=== PATIENT | female | born 1940 | race Caucasian/White ===

== ENCOUNTER 2016-03-22 08:00 | Outpatient (CLI) | payer MEDICARE ==
[2016-03-22 08:23] LABS: #Basophils 0.2 thou/uL (0.0-0.2); #Eosinphils 0.3 thou/uL (0.0-0.7); #Lymphocytes 1.5 thou/uL (1.20-3.40); #Monocytes 0.5 thou/uL (0.11-0.59); #Neutrophils 4.2 thou/uL (1.40-6.50); %Basophils 2.3 % (0.0-1.0); %Eosinophils 4.5 % (0.0-10.0); %Lymphocytes 22.8 % (21.0-51.0); %Neutrophils 63.4 % (42.0-75.0); Hemoglobin 14.4 g/dL (12.0-16.0); Mean Corpuscular HGB CONC 32.5 g/dL (32.0-36.0); Mean Corpuscular Hemoglobin 29.9 pg (27.0-31.0); Platelet Count 242 thou/uL (130-400); RBC Distribution Width 12.7 % (11.5-14.5); Red Blood Cell (RBC) Count 4.81 mill/uL (4.20-5.40); White Blood Cell (WBC) Count 6.7 thou/uL (4.8-10.8)
[2016-03-22 08:32] LABS: Bilirubin Negative (Negative); Blood, Urine Negative (Negative); Clarity Clear (Clear); Glucose, Urine (Dipstick) Negative (Negative); Leukocyte Small (Negative); Nitrite Negative (Negative); Protein, Urine (Dipstick) Negative (Neg-Trace); Urobilinogen 0.2 mg/dL (0.2-1.0)
[2016-03-22 09:15] LABS: Bacteria/HPF Rare-Few HPF (None Seen); RBC/HPF 0-3 HPF (0-3); WBC/HPF 0-3 HPF (0-3)
[2016-03-22 09:44] LABS: ALT (SGPT) 15 U/L (0-55); AST (SGOT) 18 U/L (5-34); Albumin 3.9 g/dL (3.4-4.8); Alkaline Phosphatase 81 U/L (40-150); Anion Gap 15 mmol/L (10-20); BUN (Urea Nitrogen) 21 mg/dL (9.8-20.1); Bilirubin, Total 0.4 mg/dL (0.2-1.2); Calc. Creatinine Clearance 0 mL/min (70-130); Calcium 9.8 mg/dL (7.8-10.44); Carbon Dioxide 24 mmol/L (23-31); Cardiac Risk 2.9 (Less than 4.5); Chloride 105 mmol/L (98-107); Cholesterol 184 mg/dL (< 200 Desired); Estimated GFR-MDRD 83; Globulin 2.4 g/dL (2.4-3.5); Glucose 92 mg/dL (83-110); HDL Cholesterol 63 mg/dL (>60 Neg Risk); LDL Cholesterol, Calculated 112 mg/dL; Potassium 4.4 mmol/L (3.5-5.1); Protein, Total 6.3 g/dL (5.8-8.1); Sodium 140 mmol/L (136-145); Triglycerides 43 mg/dL (Less than 150)
== END 2016-03-22 08:01 | disposition home or self-care (01) ==
LOC: MADLABBHPM 08:00
PROVIDERS: ATTEND Family Medicine
DX: I10 Essential (primary) hypertension (principal)
CPT/HCPCS: 36415; 80053; 80061; 81001; 84443; 85025

== ENCOUNTER 2016-10-01 14:08 | Outpatient (CLI) | payer MEDICARE ==
[2016-10-01 14:27] LABS: #Basophils 0.1 thou/uL (0.0-0.2); #Eosinphils 0.3 thou/uL (0.0-0.7); #Lymphocytes 1.6 thou/uL (1.20-3.40); #Monocytes 0.5 thou/uL (0.11-0.59); #Neutrophils 5.1 thou/uL (1.40-6.50); %Basophils 1.6 % (0.0-1.0); %Eosinophils 3.6 % (0.0-10.0); %Lymphocytes 21.4 % (21.0-51.0); %Monocytes 6.3 % (0.0-10.0); Hemoglobin 14.8 g/dL (12.0-16.0); Mean Corpuscular HGB CONC 32.1 g/dL (32.0-36.0); Mean Corpuscular Hemoglobin 30.3 pg (27.0-31.0); Mean Corpuscular Volume 94.4 fl (81.0-99.0); Mean Platelet Volume 7.8 fL (7.4-10.4); Platelet Count 256 thou/uL (130-400); RBC Distribution Width 12.2 % (11.5-14.5); Red Blood Cell (RBC) Count 4.88 mill/uL (4.20-5.40); White Blood Cell (WBC) Count 7.6 thou/uL (4.8-10.8)
[2016-10-01 14:38] LABS: Anion Gap 13 mmol/L (10-20); BUN (Urea Nitrogen) 18 mg/dL (9.8-20.1); Calc. Creatinine Clearance 0 mL/min (70-130); Calcium 9.8 mg/dL (7.8-10.44); Carbon Dioxide 27 mmol/L (23-31); Chloride 107 mmol/L (98-107); Estimated GFR-MDRD 75; Glucose 98 mg/dL (83-110); Potassium 3.9 mmol/L (3.5-5.1); Sodium 143 mmol/L (136-145)
== END 2016-10-01 14:09 | disposition home or self-care (01) ==
LOC: MADLABBHPM 14:08
PROVIDERS: ATTEND Family Medicine
DX: E04.9 Nontoxic goiter, unspecified (principal)
CPT/HCPCS: 36415; 80048; 84443; 85025

== ENCOUNTER 2016-10-07 10:01 | Outpatient (CLI) | payer MEDICARE ==
--- NOTE | 2016-10-07 11:39 | ULT ---
THYROID ULTRASOUND: Date: 10/07/16 HISTORY: Goiter. FINDINGS: Comparison made with exam of 09/29/13. The right lobe measures 4.7 cm in length and the left lobe measures 4.6 cm in length. The isthmus me asures 5.0 mm in thickness. Multiple heterogeneous masses are seen, the largest measuring 2.1 x 1.5 x 2.8 cm in the right lobe, and 4.2 x 1.4 x 3.2 cm in the left lobe. IMPRESSION: Multinodular thyroid gland. FNA of the dominant nodule would be helpful. POS: SEMAJ
== END 2016-10-07 10:02 | disposition home or self-care (01) ==
LOC: MADULT 10:01
PROVIDERS: ATTEND Family Medicine
DX: E04.2 Nontoxic multinodular goiter (principal)
CPT/HCPCS: 76536

== ENCOUNTER 2018-08-14 09:43 | Emergency (ER) | payer MEDICARE ==
[2018-08-14] MEDS ORDERED: traMADol HCl 50 MG TAB ONE (10:14)
[2018-08-14] MEDS ORDERED: Adacel (T-DAP) 0.5 ML SYRINGE ONE (10:14)
--- NOTE | 2018-08-14 10:37 | RAD ---
LEFT HIP TWO VIEWS: HISTORY: Fall today with left hip pain. COMPARISON: None. FINDINGS: Two views of the left hip show an abnormal appearance at the junction of the femoral neck with the fe moral head, which may represent a minimally displaced fracture in this location. Mild soft tissue sw elling is seen. No degenerative change is seen in the left hip. IMPRESSION: Possible left femoral neck fracture. POS: LEONOR
--- NOTE | 2018-08-14 10:40 | RAD ---
LEFT WRIST FOUR VIEWS: HISTORY: Fall today with wrist pain. FINDINGS: There is an intraarticular distal radial fracture. The fracture has a transverse component through t he epiphyseal plate and also an intraarticular component at the level of the scapholunate joint. An avulsive injury of the ulnar styloid is seen. The fracture is somewhat impacted but not significantl y angulated. IMPRESSION: Distal radial and ulnar styloid fractures. POS: CET
[2018-08-14 12:24] LABS: #Basophils 0.1 thou/uL (0.0-0.2); #Eosinphils 0.1 thou/uL (0.0-0.7); #Lymphocytes 0.7 thou/uL (1.20-3.40); #Monocytes 0.6 thou/uL (0.11-0.59); #Neutrophils 9.3 thou/uL (1.40-6.50); %Basophils 0.7 % (0.0-1.0); %Eosinophils 0.6 % (0.0-10.0); %Lymphocytes 6.9 % (21.0-51.0); %Monocytes 5.2 % (0.0-10.0); %Neutrophils 86.6 % (42.0-75.0); Hemoglobin 13.2 g/dL (12.0-16.0); Mean Corpuscular HGB CONC 31.4 g/dL (32.0-36.0); Mean Corpuscular Hemoglobin 28.9 pg (27.0-31.0); Mean Corpuscular Volume 92.1 fL (78.0-98.0); Mean Platelet Volume 7.1 fL (7.4-10.4); Platelet Count 228 thou/uL (130-400); RBC Distribution Width 12.4 % (11.5-14.5); Red Blood Cell (RBC) Count 4.56 mill/uL (4.20-5.40); White Blood Cell (WBC) Count 10.8 thou/uL (4.8-10.8)
[2018-08-14 12:33] LABS: Anion Gap 12 mmol/L (10-20); BUN (Urea Nitrogen) 20 mg/dL (9.8-20.1); Calc. Creatinine Clearance 0 mL/min (70-130); Calcium 9.7 mg/dL (7.8-10.44); Carbon Dioxide 27 mmol/L (23-31); Chloride 108 mmol/L (98-107); Estimated GFR-MDRD 56; Glucose 104 mg/dL (83-110); Potassium 4.6 mmol/L (3.5-5.1); Sodium 142 mmol/L (136-145)
--- NOTE | 2018-08-14 13:07 | RAD ---
PORTABLE CHEST: HISTORY: Preop. FINDINGS: Heart size and mediastinum are within normal limits. Lungs are clear of any infiltrative process. IMPRESSION: No active intrathoracic disease. POS: CET
== END 2018-08-14 13:06 | disposition short-term general hospital (02) ==
LOC: MADERS 09:43
DX: S52.572A Other intraarticular fracture of lower end of left radius, initial encounter for closed fracture (principal); S52.612A Displaced fracture of left ulna styloid process, initial encounter for closed fracture; S72.002A Fracture of unspecified part of neck of left femur, initial encounter for closed fracture; Z79.82 Long term (current) use of aspirin; Z79.899 Other long term (current) drug therapy; W18.30XA Fall on same level, unspecified, initial encounter
CPT/HCPCS: 29125; 36415; 71045; 80048; 85025; 90471; 90715; 93005

== ENCOUNTER 2018-08-18 16:38 | Inpatient (IN) | payer MEDICARE ==
[2018-08-18 16:59] VITALS: BMI 27.5
[2018-08-18] MEDS ORDERED: Bisacodyl 10 MG SUPP PR PRN (17:54)
[2018-08-18] MEDS: Famotidine 20 MG TAB PO SCH (20:47)
[2018-08-18] MEDS: Ascorbic Acid 500 mg Chewable Tablet PO SCH (20:47)
[2018-08-19] MEDS: HYDROcodone/Acetaminophen 5/325 mg Tablet PO PRN ×4 (02:49→17:12)
[2018-08-19 04:57] LABS: #Basophils 0.1 thou/uL (0.0-0.2); #Eosinphils 0.4 thou/uL (0.0-0.7); #Monocytes 0.7 thou/uL (0.11-0.59); #Neutrophils 3.7 thou/uL (1.40-6.50); %Basophils 1.8 % (0.0-1.0); %Eosinophils 7.1 % (0.0-10.0); %Lymphocytes 17.1 % (21.0-51.0); %Monocytes 12.3 % (0.0-10.0); %Neutrophils 61.6 % (42.0-75.0); Hemoglobin 11.3 g/dL (12.0-16.0); Mean Corpuscular HGB CONC 33.7 g/dL (32.0-36.0); Mean Corpuscular Hemoglobin 30.4 pg (27.0-31.0); Mean Corpuscular Volume 90.4 fL (78.0-98.0); Mean Platelet Volume 6.7 fL (7.4-10.4); Platelet Count 194 thou/uL (130-400); RBC Distribution Width 11.6 % (11.5-14.5)
[2018-08-19 05:26] LABS: ALT (SGPT) 10 U/L (8-55); AST (SGOT) 16 U/L (5-34); Albumin 3.2 g/dL (3.4-4.8); Alkaline Phosphatase 59 U/L (40-150); Anion Gap 10 mmol/L (10-20); BUN (Urea Nitrogen) 11 mg/dL (9.8-20.1); Bilirubin, Total 0.6 mg/dL (0.2-1.2); Calc. Creatinine Clearance 107 mL/min (70-130); Calcium 9.2 mg/dL (7.8-10.44); Carbon Dioxide 29 mmol/L (23-31); Chloride 106 mmol/L (98-107); Estimated GFR-MDRD Greater than 90; Globulin 2.1 g/dL (2.4-3.5); Glucose 109 mg/dL (83-110); Potassium 3.9 mmol/L (3.5-5.1); Protein, Total 5.3 g/dL (6.0-8.3); Sodium 141 mmol/L (136-145)
[2018-08-19] MEDS: Ascorbic Acid 500 mg Chewable Tablet PO SCH ×2 (08:44→20:06)
[2018-08-19] MEDS: Famotidine 20 MG TAB PO SCH ×2 (08:44→20:06)
[2018-08-19] MEDS: Amlodipine 5 MG TAB PO SCH (08:44)
[2018-08-19] MEDS: Zinc Sulfate 220 MG CAP PO SCH (08:45)
[2018-08-19] MEDS: Polyethylene Glycol 3350 17 GM Packet PO SCH (08:45)
[2018-08-19] MEDS: Enoxaparin Sodium 40 MG/0.4 ML SYRINGE SC SCH (08:45)
--- NOTE | 2018-08-19 09:21 | HP ---
CHIEF COMPLAINT: Weakness following a fall with fracture to the left wrist and contusion to the left hip. HISTORY OF PRESENT ILLNESS: The patient is a 78-year-old white female, who lives with her and is independent of all her ADLs and instrumental ADLs. She has a history of hypertension, but on no medication; TIA, but no recurrence in many years; and a benign multinodular goiter that has been stable. The patient was working at the [employer] on the afternoon of 08/14/2018 and fell. She got most of the blow of the fall on her left hip and left wrist, but also hit her left temporal area. There was no loss of consciousness. She was brought to the emergency room and found to have a close comminuted displaced fracture of the distal radius and ulnar nerve. She also had a possible fracture of the left femoral neck. She was transferred to [facility] that day and was seen and was evaluated by Orthopedic Surgeon, Dr. Daniele Dela Cruz. On 08/15/2018, she underwent an open reduction and internal fixation of the left distal radial three-part intra-articular fracture requiring a volar plate and screws. She did very well from the surgery and was placed in a volar splint and is to see him in followup in 2 weeks. The left hip was evaluated with a CT scan of the hip and no evidence of a left hip fracture was seen. The patient was just felt to have a large bruise to that left hip and was having pain from the bruising. Physical Therapy worked with the patient while at the [facility] in [place] and she was able to walk with a walker and a platform for her left arm. She required assistance with all her ADLs and transfers and standby assistance with ambulation. Her fall was a mechanical fall from probably tripping. There was no loss of consciousness and neurologically she was intact. She was transferred to [facility] on 08/18/2018 for Physical Therapy and Occupational Therapy. Her level of care exceeded what could be provided in her home and she had posed too much of a fall risk trying to take care of herself at home. The patient was seen soon after her admission and was able to give me an excellent history of the events that had transpired and how she had been doing. PAST MEDICAL HISTORY: Hospitalized at the [facility] from 08/14/2018 to 2018 for fall resulting in a comminuted closed displaced fracture of the left distal radius requiring open reduction and internal fixation with a plate and locking distal radial plate by Dr. Ishaan Dela Cruz. She also had a contusion to the left hip. CT scan showed no evidence of fracture. The patient has a history of a multinodular goiter. Previous biopsy has been negative. She has had a bilateral knee replacements in [address] Romero. She has a distant history of hypertension, but is on no medication. She also has a distant history of TIAs, this was manifested with temporary left-sided facial weakness in 2008, no recurrence. She has GERD. PAST SURGICAL HISTORY: Bilateral total knee replacements. Cataract surgery with placement of interocular lens implants. Bilateral melanoma removed from the back with wide excision in 2003, no recurrence. Hysterectomy. Previous colonoscopy negative. PRESENT MEDICATIONS: 1. Pepcid 20 mg daily. 2. Vitamin C 500 mg b.i.d. 3. Vitamin D3 50,000 units 1 weekly for 8 weeks. 4. [place] 5/325 one every 4 hours as needed for pain. ALLERGIES: SULFA DRUGS CAUSE NAUSEA AND VOMITING. NAPROXEN, HEARTBURN. SERTRALINE, DIZZINESS. REVIEW OF SYSTEMS: GENERAL: The patient said she has had no fever. She has had no change in her weight. HEAD AND NECK: No complaints. PULMONARY: No shortness of breath. CARDIOVASCULAR: No chest pain. GI: No nausea or vomiting. The patient said she has not had a bowel movement in the last 4 or 5 days. : No complaints. MUSCULOSKELETAL: The patient says she is sore in the left hip, particularly with movement. Has trouble moving it. She has a splint on her left arm and has very limited mobility. ADLs, prior to her fall she was independent of all her ADLs and instrumental ADLs. HABITS: Alcohol, none. Tobacco, none. SOCIAL HISTORY: The patient is , lives with her . CODE STATUS: Full code. PHYSICAL EXAMINATION: GENERAL: The patient is sitting up on the side of the bed. She is alert, appears comfortable, in no distress. VS BP 162/72, P 94, R16, T99.2 and O2 sat 94%. HEENT: Her head is atraumatic and normocephalic. Her face, the patient has some little bruise in the left temporal area. There is no swelling. Eyes, pupils are equal, round, and reactive. Sclerae nonicteric. Ears, TMs are clear. Nose normal. Mouth and throat normal. NECK: Carotids are equal and strong. No bruits. The patient has moderate- sized goiter, is nontender. Chest wall nontender. No bony crepitation. LUNGS: Clear. HEART: Regular rate. No murmurs. In the lower sternal area, there is a little irritation to the skin from what looks like EKG lead or monitor lead. ABDOMEN: Soft with no organomegaly, nor areas of tenderness. EXTREMITIES: The left arm has a volar splint. The fingers show good perfusion and movement. She has a large amount of bruising and some edema in the proximal forearm and elbow. Lower extremities, there is no edema. The patient has excellent motion in the right leg and motion in the hip with no tenderness. In the left leg, there is no edema. There is a hand-sized bruise just over the left hip just posterior and superior to the greater trochanter. The patient has reduced motion in that left hip and has pain with movement and pain with internal and external rotation. There is no evidence of any displacement. NEUROLOGIC: The patient is alert, oriented x3 and understands her situation and what has happened. She has weakness in that left arm from the fracture and the left leg from the large bruise. The right side has excellent strength. IMPRESSION: 1. Generalized weakness and gait abnormality. a. Secondary to recent fall with fracture of the left wrist on 08/14/2018, and that required open reduction and internal fixation and contusion to the left hip. b. Gait abnormality. 2. Fall, mechanical tripping that occurred on 08/14/2018 and resulting fracture of the left wrist and contusion of the left hip. 3. Closed comminuted displaced fracture of the left distal radius secondary to a fall on 08/14/2018. a. Status post open reduction and internal fixation utilizing an Arthrex volar locking distal radius plate on 08/15/[address] Ishaan Dela Cruz. 4. Contusion to the left hip secondary to the fall on 08/14/2018. a. Complicated by pain and reduced movement and gait abnormality. b. CT scan of the left hip on 08/14/2018 showed no evidence of left hip fracture. 5. Multinodular goiter. a. Status post biopsy that is benign. b. Stable. 6. History of transient ischemic attack. a. Manifested with left-sided facial weakness in 2008. b. No recurrence. 7. Constipation. PLAN: The patient had been admitted to [facility] for purpose of PT and OT therapy. We will continue GI prophylaxis with Pepcid. We will continue DVT prophylaxis with Lovenox. We will provide Tylenol for pain and for moderate severe pain, hydrocodone 5/325. Elevate the left arm. Continue to wear the volar splint. She will need to follow up with Dr. Dela Cruz, her Orthopedic Surgeon in 2 weeks. Code status, full code. Job ID: [id number] MTDD
--- NOTE | 2018-08-19 09:58 | PRG ---
DATE OF SERVICE: 08/19/2018 SUBJECTIVE: The patient says she is doing okay. She said she has some soreness in the left hip and arm. She took hydrocodone and this gave her good relief. Her bowels have not yet moved. She said she slept good. Therapies have already been in, and I have a Platform Walker to work with her. OBJECTIVE: GENERAL: The patient is sitting on the side of the bed. She is alert, appears comfortable, and in no distress. VITAL SIGNS: Temperature is 98.8, pulse 85, respirations 20, O2 saturation 96% on room air. Blood pressure this morning was 170/80, but last evening 140/62. We will continue to observe this. LUNGS: Clear. HEART: Regular rate. EXTREMITIES: Left arm, there is a volar splint on the arm. The fingers look good and they have good mobility and good color and circulation. The proximal forearm is edematous and has some bruising, but unchanged from yesterday. Lower extremities, no edema. ASSESSMENT: 1. Generalized weakness and gait abnormality. a. Secondary to recent fall with fracture of the left wrist on 08/14/2018, and that required open reduction and internal fixation and contusion to the left hip. b. Gait abnormality. c. PT/OT has begin working with her this morning, 08/19/2018. 2. Fall, mechanical tripping that occurred on 08/14/2018 and resulting fracture of the left wrist and contusion of the left hip. 3. Closed comminuted displaced fracture of the left distal radius secondary to a fall on 08/14/2018. a. Status post open reduction and internal fixation utilizing an Arthrex volar locking distal radius plate on 08/15/[address] Ishaan Dela Cruz. 4. Contusion to the left hip secondary to the fall on 08/14/2018. a. Complicated by pain and reduced movement and gait abnormality. b. CT scan of the left hip on 08/14/2018 showed no evidence of left hip fracture. 5. Multinodular goiter. a. Status post biopsy that is benign. b. Stable. 6. History of transient ischemic attack. a. Manifested with left-sided facial weakness in 2008. b. No recurrence. 7. Constipation. PLAN: Continue present care. Continue PT and OT. I saw that the patient was receiving amlodipine 5 mg while she was at the [facility], we will restart this. Also, she was on vitamin D 1000 units daily, we will also start this. She was receiving zinc 220 mg daily, we will also start. Job ID: [id number] [facility]
[2018-08-19] MEDS: Acetaminophen 325 MG TAB PO PRN (20:06)
[2018-08-20] MEDS: HYDROcodone/Acetaminophen 5/325 mg Tablet PO PRN ×4 (02:32→21:33)
[2018-08-20] MEDS: Famotidine 20 MG TAB PO SCH ×2 (07:42→21:32)
[2018-08-20] MEDS: Amlodipine 5 MG TAB PO SCH (07:42)
[2018-08-20] MEDS: Enoxaparin Sodium 40 MG/0.4 ML SYRINGE SC SCH (07:42)
[2018-08-20] MEDS: Zinc Sulfate 220 MG CAP PO SCH (07:42)
[2018-08-20] MEDS: Ascorbic Acid 500 mg Chewable Tablet PO SCH ×2 (07:42→21:32)
[2018-08-20] MEDS: Polyethylene Glycol 3350 17 GM Packet PO SCH (07:43)
--- NOTE | 2018-08-20 09:54 | PRG ---
DATE OF SERVICE: 08/20/2018 SUBJECTIVE: The patient said she is doing good. Her left wrist feels pretty good in the splint. She said she is still sore in that left hip. She is comfortable when she is just sitting or lying, but the process of movement, getting up and down hurts. She did walk short distance yesterday. She said her bowels have begun moving. OBJECTIVE: GENERAL: The patient is sitting up in a chair. She is alert, appears very comfortable, in no distress. VITAL SIGNS: Her temperature is 99.1, pulse 87, respirations 16, O2 saturation 95% on room air, blood pressure 153/70. LUNGS: Clear. HEART: Regular rate. EXTREMITIES: Left forearm is in a volar splint. On the proximal portion of the wrap, there was just a tiny abrasion that is healing. No surrounding redness. The Lakhwinder bandage was folded back from this area. There is still bruising around the proximal forearm and elbow, but a little less. Lower extremities, no edema. ASSESSMENT: 1. Generalized weakness and gait abnormality. a. Secondary to recent fall with fracture of the left wrist on 08/14/2018, and that required open reduction and internal fixation and contusion to the left hip. b. Gait abnormality. c. Improved as of 08/20/2018. 2. Fall, mechanical tripping that occurred on 08/14/2018 and resulting fracture of the left wrist and contusion of the left hip. 3. Closed comminuted displaced fracture of the left distal radius secondary to a fall on 08/14/2018. a. Status post open reduction and internal fixation utilizing an Arthrex volar locking distal radius plate on 08/15/[address] Ishaan Dela Cruz. b. Comfortable with appropriate fitting volar splint on the left forearm as of 08/20/2018. 4. Contusion to the left hip secondary to the fall on 08/14/2018. a. Complicated by pain and reduced movement and gait abnormality. b. CT scan of the left hip on 08/14/2018 showed no evidence of left hip fracture. c. Comfortable at rest, but still having some pain with transfers and movement, but improving as of 08/20/2018. 5. Multinodular goiter. a. Status post biopsy that is benign. b. Stable. 6. History of transient ischemic attack. a. Manifested with left-sided facial weakness in 2008. b. No recurrence. 7. Constipation. a. Improved as of 08/20/2018. 8. Hypertension. a. Controlled, improved. PLAN: Continue present care. Continue PT and OT. Job ID: [id number] MTDD
[2018-08-20] MEDS: Acetaminophen 325 MG TAB PO PRN (15:23)
[2018-08-21] MEDS: HYDROcodone/Acetaminophen 5/325 mg Tablet PO PRN ×3 (08:19→20:38)
[2018-08-21] MEDS: Ascorbic Acid 500 mg Chewable Tablet PO SCH ×2 (08:20→20:38)
[2018-08-21] MEDS: Amlodipine 5 MG TAB PO SCH (08:20)
[2018-08-21] MEDS: Famotidine 20 MG TAB PO SCH ×2 (08:20→20:38)
[2018-08-21] MEDS: Enoxaparin Sodium 40 MG/0.4 ML SYRINGE SC SCH (08:20)
[2018-08-21] MEDS: Polyethylene Glycol 3350 17 GM Packet PO SCH (08:21)
[2018-08-21] MEDS: Zinc Sulfate 220 MG CAP PO SCH (08:28)
--- NOTE | 2018-08-21 10:44 | PRG ---
DATE OF SERVICE: 08/21/2018 SUBJECTIVE: The patient said she is feeling a little better today. She is still sore in that left hip and the left arm is sore. She is working with Physical Therapy and doing well with that and learning to use a platform walker. OBJECTIVE: GENERAL: The patient is sitting up in her Vane chair. She is alert , talkative, appears comfortable, and in no distress. VITAL SIGNS: Her temp is 98.7, pulse 93; blood pressure 166/76, last evening was 147/67; respirations 18, O2 saturation 95% on room air. LUNGS: Clear. HEART: Regular rate. EXTREMITIES: Left arm is in a volar splint. She has good motion in the fingers. Fingertips show good capillary refill. The edema over the proximal forearm and elbow has improved. The bruising is diminishing. Lower extremities, no edema. ASSESSMENT: 1. Generalized weakness and gait abnormality. a. Secondary to recent fall with fracture of the left wrist on 08/14/2018, and that required open reduction and internal fixation and contusion to the left hip. b. Gait abnormality. c. Improved as of 08/21/2018. 2. Fall, mechanical tripping that occurred on 08/14/2018 and resulting fracture of the left wrist and contusion of the left hip. 3. Closed comminuted displaced fracture of the left distal radius secondary to a fall on 08/14/2018. a. Status post open reduction and internal fixation utilizing an Arthrex volar locking distal radius plate on 08/15/[address] Ishaan Dela Cruz. b. Comfortable with appropriate fitting volar splint on the left forearm as of 08/21/2018. 4. Contusion to the left hip secondary to the fall on 08/14/2018. a. Complicated by pain and reduced movement and gait abnormality. b. CT scan of the left hip on 08/14/2018 showed no evidence of left hip fracture. c. Comfortable at rest, but still having some pain with transfers and movement, but improving as of 08/21/2018. 5. Multinodular goiter. a. Controlled as of 08/21. b. Stable. 6. History of transient ischemic attack. a. Manifested with left-sided facial weakness in 2008. b. No recurrence. 7. Constipation. a. Improved as of 08/20/2018. 8. Hypertension. a. Controlled, improved. PLAN: Continue present care. Continue PT and OT. The patient has followup appointment with Dr. Dela Cruz, her orthopedic surgeon on 08/31/2018. Job ID: [id number] [facility]
[2018-08-22] MEDS: Amlodipine 5 MG TAB PO SCH (09:18)
[2018-08-22] MEDS: HYDROcodone/Acetaminophen 5/325 mg Tablet PO PRN ×4 (09:18→23:58)
[2018-08-22] MEDS: Enoxaparin Sodium 40 MG/0.4 ML SYRINGE SC SCH (09:18)
[2018-08-22] MEDS: Ascorbic Acid 500 mg Chewable Tablet PO SCH ×2 (09:18→20:16)
[2018-08-22] MEDS: Zinc Sulfate 220 MG CAP PO SCH (09:18)
[2018-08-22] MEDS: Polyethylene Glycol 3350 17 GM Packet PO SCH (09:20)
[2018-08-22] MEDS: Famotidine 20 MG TAB PO SCH ×2 (09:20→20:16)
[2018-08-23] MEDS: HYDROcodone/Acetaminophen 5/325 mg Tablet PO PRN ×3 (05:52→20:30)
[2018-08-23] MEDS: Polyethylene Glycol 3350 17 GM Packet PO SCH (09:31)
[2018-08-23] MEDS: Enoxaparin Sodium 40 MG/0.4 ML SYRINGE SC SCH (09:31)
[2018-08-23] MEDS: Amlodipine 5 MG TAB PO SCH (09:31)
[2018-08-23] MEDS: Famotidine 20 MG TAB PO SCH ×2 (09:31→20:29)
[2018-08-23] MEDS: Zinc Sulfate 220 MG CAP PO SCH (09:31)
[2018-08-23] MEDS: Ascorbic Acid 500 mg Chewable Tablet PO SCH ×2 (09:32→20:29)
[2018-08-23] MEDS: Acetaminophen 325 MG TAB PO PRN (15:04)
[2018-08-24] MEDS: Acetaminophen 325 MG TAB PO PRN ×2 (03:56→21:12)
[2018-08-24] MEDS: HYDROcodone/Acetaminophen 5/325 mg Tablet PO PRN ×2 (07:22→15:53)
[2018-08-24] MEDS: Amlodipine 5 MG TAB PO SCH (08:53)
[2018-08-24] MEDS: Ascorbic Acid 500 mg Chewable Tablet PO SCH ×2 (08:53→21:09)
[2018-08-24] MEDS: Enoxaparin Sodium 40 MG/0.4 ML SYRINGE SC SCH (08:53)
[2018-08-24] MEDS: Famotidine 20 MG TAB PO SCH ×2 (08:53→21:10)
[2018-08-24] MEDS: Polyethylene Glycol 3350 17 GM Packet PO SCH (08:53)
[2018-08-24] MEDS: Zinc Sulfate 220 MG CAP PO SCH (08:56)
--- NOTE | 2018-08-24 09:53 | PRG ---
DATE OF SERVICE: 08/22/2018 SUBJECTIVE: The patient says she is doing better. She is able to get up and down a little easier. She still has pain in the left hip, but it is better. Her left wrist is feeling better. The swelling in her forearm is better. She is still requiring periodic pain tablet, which does help her. OBJECTIVE: GENERAL: The patient is sitting up in a chair, visiting with her family. She is alert, appears in no distress. VITAL SIGNS: Her temperature is 98.4, pulse 89, respirations 18, O2 saturations 94% on room air, and blood pressure 160/72. LUNGS: Clear. HEART: Regular rate. EXTREMITIES: Left arm, the patient is in a forearm volar splint. Fingers, she has good motion and good evident circulation. The swelling along the proximal forearm and elbow has nearly all resolved. There is still some bruising, but this is fading. Lower extremities, no edema. ASSESSMENT: 1. Generalized weakness and gait abnormality. a. Secondary to recent fall with fracture of the left wrist on 08/14/2018, and that required open reduction and internal fixation and contusion to the left hip. b. Gait abnormality. c. Improved as of 08/22/2018. 2. Fall, mechanical tripping that occurred on 08/14/2018 and resulting fracture of the left wrist and contusion of the left hip. 3. Closed comminuted displaced fracture of the left distal radius secondary to a fall on 08/14/2018. a. Status post open reduction and internal fixation utilizing an Arthrex volar locking distal radius plate on 08/15/[address] Ishaan Dela Cruz. b. Comfortable with appropriate fitting volar splint on the left forearm as of 08/22/2018. 4. Contusion to the left hip secondary to the fall on 08/14/2018. a. Complicated by pain and reduced movement and gait abnormality. b. CT scan of the left hip on 08/14/2018 showed no evidence of left hip fracture. c. Comfortable at rest, but still having some pain with transfers and movement, but improving as of 08/22/2018. 5. Multinodular goiter. a. Controlled as of 08/21. b. Stable. 6. History of transient ischemic attack. a. Manifested with left-sided facial weakness in 2008. b. No recurrence. 7. Constipation. a. Improved as of 08/20/2018. 8. Hypertension. a. Controlled, improved. PLAN: Continue PT and OT. Job ID: [id number] MTDD
--- NOTE | 2018-08-24 09:55 | PRG ---
DATE OF SERVICE: 08/24/2018 SUBJECTIVE: The patient said she is up this morning. She is doing okay, but is sore over the left wrist and just sore in that left hip. She is doing more with her activities and doing well with the platform walker. She is upset this morning because her [id number] just . She was 89. OBJECTIVE: GENERAL: The patient is sitting up in a chair, it looks a little uncomfortable, but in no acute distress. VITAL SIGNS: Show a temperature 97.9, pulse 87, respirations 18, O2 saturation 95% on room air, blood pressure 140/83. LUNGS: Clear. HEART: Regular rate. EXTREMITIES: The patient's forearm is in a volar splint that is fitting appropriately. Fingers show good circulation and no blueness. Her lower extremities have no edema. ASSESSMENT: 1. Generalized weakness and gait abnormality. a. Secondary to recent fall with fracture of the left wrist on 08/14/2018, and that required open reduction and internal fixation and contusion to the left hip. b. Gait abnormality. c. Improved as of 08/24/2018. 2. Fall, mechanical tripping that occurred on 08/14/2018 and resulting fracture of the left wrist and contusion of the left hip. 3. Closed comminuted displaced fracture of the left distal radius secondary to a fall on 08/14/2018. a. Status post open reduction and internal fixation utilizing an Arthrex volar locking distal radius plate on 08/15/[address] Ishaan Dela Cruz. b. Comfortable with the appropriate fitting volar splint on the left forearm. Still has pain in that arm as of 08/24/2018. 4. Contusion to the left hip secondary to the fall on 08/14/2018. a. Complicated by pain and reduced movement and gait abnormality. b. CT scan of the left hip on 08/14/2018 showed no evidence of left hip fracture. c. Comfortable at rest, but still having some pain with transfers and movement, but improving as of 08/24/2018. 5. Multinodular goiter. a. Controlled as of 08/21. b. Stable. 6. History of transient ischemic attack. a. Manifested with left-sided facial weakness in 2008. b. No recurrence. 7. Constipation. a. Improved as of 08/20/2018. 8. Hypertension. a. Controlled, improved. PLAN: Continue present care. Continue PT, OT. The patient is due to see Dr. Sanchez in followup on 09/01. Job ID: [id number] MTDD
[2018-08-25] MEDS: Famotidine 20 MG TAB PO SCH ×2 (08:18→21:45)
[2018-08-25] MEDS: Polyethylene Glycol 3350 17 GM Packet PO SCH (08:18)
[2018-08-25] MEDS: Zinc Sulfate 220 MG CAP PO SCH (08:18)
[2018-08-25] MEDS: HYDROcodone/Acetaminophen 5/325 mg Tablet PO PRN ×2 (08:19→21:47)
[2018-08-25] MEDS: Enoxaparin Sodium 40 MG/0.4 ML SYRINGE SC SCH (08:19)
[2018-08-25] MEDS: Ascorbic Acid 500 mg Chewable Tablet PO SCH ×2 (08:19→21:46)
[2018-08-25] MEDS: Amlodipine 5 MG TAB PO SCH (08:19)
--- NOTE | 2018-08-25 11:58 | PRG ---
DATE OF SERVICE: 08/25/2018 SUBJECTIVE: The patient says she is doing okay. She is just sore, did not rest very well last night. She said her pain medicine does relieve her, but she tries to minimize this. She is doing better with therapy. Her hip still is sore, but feels better. OBJECTIVE: GENERAL: The patient is lying back in a geriatric chair. She looks a little uncomfortable, but in no acute distress. VITAL SIGNS: Show a temperature of 98.6, pulse 87, respirations 14, O2 saturation 96% on room air, blood pressure 142/66. LUNGS: Clear. HEART: Regular rate. EXTREMITIES: Left arm in a volar forearm splint. It fits appropriately. Lower extremities, no edema. The patient's left hip can be moved now much more comfortably than what it was on admission. Range of motion is better. ASSESSMENT: 1. Generalized weakness and gait abnormality. a. Secondary to recent fall with fracture of the left wrist on 08/14/2018, and that required open reduction and internal fixation and contusion to the left hip. b. Gait abnormality. c. Improved as of 08/25/2018. 2. Fall, mechanical tripping that occurred on 08/14/2018 and resulting fracture of the left wrist and contusion of the left hip. 3. Closed comminuted displaced fracture of the left distal radius secondary to a fall on 08/14/2018. a. Status post open reduction and internal fixation utilizing an Arthrex volar locking distal radius plate on 08/15/[address] Ishaan Dela Cruz. b. Comfortable with appropriate fitting volar splint on the left forearm as of 08/25/2018. 4. Contusion to the left hip secondary to the fall on 08/14/2018. a. Complicated by pain and reduced movement and gait abnormality. b. CT scan of the left hip on 08/14/2018 showed no evidence of left hip fracture. c. Comfortable at rest. Still having some pain. Transfers and ambulation are better. Range of motion of the left hip better as of 08/25/2018. 5. Multinodular goiter. a. Controlled as of 08/21. b. Stable. 6. History of transient ischemic attack. a. Manifested with left-sided facial weakness in 2008. b. No recurrence. 7. Constipation. a. Improved as of 08/20/2018. 8. Hypertension. a. Controlled, improved. PLAN: Continue PT and OT. The patient is scheduled to see her orthopedic surgeon, Dr. Dela Cruz on 08/31/2018. Job ID: [id number] MTDD
[2018-08-25] MEDS: Acetaminophen 325 MG TAB PO PRN (13:23)
[2018-08-26] MEDS: HYDROcodone/Acetaminophen 5/325 mg Tablet PO PRN ×2 (08:09→19:33)
[2018-08-26] MEDS: Famotidine 20 MG TAB PO SCH ×2 (08:10→20:33)
[2018-08-26] MEDS: Amlodipine 5 MG TAB PO SCH (08:10)
[2018-08-26] MEDS: Polyethylene Glycol 3350 17 GM Packet PO SCH (08:10)
[2018-08-26] MEDS: Ascorbic Acid 500 mg Chewable Tablet PO SCH ×2 (08:10→20:33)
[2018-08-26] MEDS: Enoxaparin Sodium 40 MG/0.4 ML SYRINGE SC SCH (08:10)
[2018-08-26] MEDS: Zinc Sulfate 220 MG CAP PO SCH (08:10)
[2018-08-26] MEDS: Acetaminophen 325 MG TAB PO PRN (10:36)
--- NOTE | 2018-08-26 11:07 | PRG ---
DATE OF SERVICE: 08/26/2018 SUBJECTIVE: The patient says she is doing better today. She slept better. She did take a pain pill at bedtime and this seemed to help her. Her left hip is doing better. Her left wrist is feeling better. She does plan on going on a pass late this morning for of her oxcvgm-wb-der, but will have plenty of help. OBJECTIVE: GENERAL: The patient is alert, appears comfortable, in no distress. She is sitting up in a geriatric chair. VITAL SIGNS: Her temperature is 98.7, pulse 84, respirations 16, O2 saturation 98% on room air, blood pressure 144/64. LUNGS: Clear. HEART: Regular rate. ASSESSMENT: 1. Generalized weakness and gait abnormality. a. Secondary to recent fall with fracture of the left wrist on 08/14/2018, and that required open reduction and internal fixation and contusion to the left hip. b. Gait abnormality. c. Improved as of 08/26/2018. 2. Fall, mechanical tripping that occurred on 08/14/2018 and resulting fracture of the left wrist and contusion of the left hip. 3. Closed comminuted displaced fracture of the left distal radius secondary to a fall on 08/14/2018. a. Status post open reduction and internal fixation utilizing an Arthrex volar locking distal radius plate on 08/15/[address] Ishaan Dela Cruz. b. Comfortable with appropriate fitting volar splint on the left forearm as of 08/26/2018. 4. Contusion to the left hip secondary to the fall on 08/14/2018. a. Complicated by pain and reduced movement and gait abnormality. b. CT scan of the left hip on 08/14/2018 showed no evidence of left hip fracture. c. Comfortable at rest. Still having some pain. Transfers and ambulation are better. Range of motion of the left hip better as of 08/26/2018. 5. Multinodular goiter. a. Controlled as of 08/21. b. Stable. 6. History of transient ischemic attack. a. Manifested with left-sided facial weakness in 2008. b. No recurrence. 7. Constipation. a. Improved as of 08/20/2018. 8. Hypertension. a. Controlled as of 08/26., improved. PLAN: Continue present care. We will see her orthopedic surgeon, Dr. Dela Cruz on 08/31. Continue PT/OT. Job ID: [id number] MTDD
[2018-08-27] MEDS: Acetaminophen 325 MG TAB PO PRN ×2 (03:08→13:29)
[2018-08-27] MEDS: HYDROcodone/Acetaminophen 5/325 mg Tablet PO PRN (08:11)
[2018-08-27] MEDS: Famotidine 20 MG TAB PO SCH ×2 (08:16→20:55)
[2018-08-27] MEDS: Ascorbic Acid 500 mg Chewable Tablet PO SCH ×2 (08:16→20:54)
[2018-08-27] MEDS: Zinc Sulfate 220 MG CAP PO SCH (08:16)
[2018-08-27] MEDS: Polyethylene Glycol 3350 17 GM Packet PO SCH (08:16)
[2018-08-27] MEDS: Amlodipine 5 MG TAB PO SCH (08:17)
[2018-08-27] MEDS: Enoxaparin Sodium 40 MG/0.4 ML SYRINGE SC SCH (08:17)
[2018-08-28] MEDS: Acetaminophen 325 MG TAB PO PRN ×3 (03:09→21:24)
[2018-08-28] MEDS: Zinc Sulfate 220 MG CAP PO SCH (08:18)
[2018-08-28] MEDS: Polyethylene Glycol 3350 17 GM Packet PO SCH (08:18)
[2018-08-28] MEDS: Amlodipine 5 MG TAB PO SCH (08:18)
[2018-08-28] MEDS: Famotidine 20 MG TAB PO SCH ×2 (08:18→21:21)
[2018-08-28] MEDS: Ascorbic Acid 500 mg Chewable Tablet PO SCH ×2 (08:18→21:21)
[2018-08-28] MEDS: Enoxaparin Sodium 40 MG/0.4 ML SYRINGE SC SCH (08:19)
--- NOTE | 2018-08-28 09:46 | PRG ---
DATE OF SERVICE: 08/27/2018 SUBJECTIVE: The patient says she is doing better. She did good with help, going to the of her [id number] yesterday. She said overall she is feeling better. She is doing better with her walking. Her left arm is feeling better. Her left hip, the pain and soreness are just down to one spot and it is getting less. OBJECTIVE: GENERAL: The patient is sitting up in a geriatric chair, visiting with her sister. She was talkative, looks very comfortable, and in no distress. VITAL SIGNS: Show temperature 96.7, pulse 80, respirations 20, O2 saturation 97% , and blood pressure 145/71. LUNGS: Clear. HEART: Regular rate. EXTREMITIES: Left arm is in a volar forearm splint, fits appropriately. There is no swelling in the hand. The swelling in the elbow has resolved and the bruising is gradually resolving. Her lower extremities have no edema. ASSESSMENT: 1. Generalized weakness and gait abnormality. a. Secondary to recent fall with fracture of the left wrist on 08/14/2018, and that required open reduction and internal fixation and contusion to the left hip. b. Gait abnormality. c. Improved as of 08/27/2018. 2. Fall, mechanical tripping that occurred on 08/14/2018 and resulting fracture of the left wrist and contusion of the left hip. 3. Closed comminuted displaced fracture of the left distal radius secondary to a fall on 08/14/2018. a. Status post open reduction and internal fixation utilizing an Arthrex volar locking distal radius plate on 08/15/[address] Ishaan Dela Cruz. b. Comfortable with appropriate fitting volar splint on the left forearm as of 08/27/2018. 4. Contusion to the left hip secondary to the fall on 08/14/2018. a. Complicated by pain and reduced movement and gait abnormality. b. CT scan of the left hip on 08/14/2018 showed no evidence of left hip fracture. c. Comfortable at rest. Still having some pain. Transfers and ambulation are better. Range of motion of the left hip better as of 08/26/2018. 5. Multinodular goiter. a. Controlled as of 08/21. b. Stable. 6. History of transient ischemic attack. a. Manifested with left-sided facial weakness in 2008. b. No recurrence. 7. Constipation. a. Controlled as of 08/27/2018. 8. Hypertension. a. Controlled as of 08/27/2018. PLAN: Continue present care. Continue PT/OT. Tentatively targeting discharge on 08/31/2018. Job ID: [id number] MTDD
[2018-08-28] MEDS: Ondansetron ODT 4 MG TAB PO PRN (16:07)
[2018-08-29] MEDS: Polyethylene Glycol 3350 17 GM Packet PO SCH ×2 (08:50→08:51)
[2018-08-29] MEDS: Zinc Sulfate 220 MG CAP PO SCH (08:50)
[2018-08-29] MEDS: Famotidine 20 MG TAB PO SCH ×2 (08:50→20:27)
[2018-08-29] MEDS: Ondansetron ODT 4 MG TAB PO PRN (08:52)
[2018-08-29] MEDS: Ascorbic Acid 500 mg Chewable Tablet PO SCH ×2 (08:53→20:31)
[2018-08-29] MEDS: Amlodipine 5 MG TAB PO SCH (08:53)
[2018-08-29] MEDS: Enoxaparin Sodium 40 MG/0.4 ML SYRINGE SC SCH (08:54)
[2018-08-29] MEDS: Acetaminophen 325 MG TAB PO PRN (20:27)
[2018-08-30] MEDS: Famotidine 20 MG TAB PO SCH ×2 (08:32→20:45)
[2018-08-30] MEDS: Polyethylene Glycol 3350 17 GM Packet PO SCH (08:32)
[2018-08-30] MEDS: Enoxaparin Sodium 40 MG/0.4 ML SYRINGE SC SCH (08:32)
[2018-08-30] MEDS: Zinc Sulfate 220 MG CAP PO SCH (08:32)
[2018-08-30] MEDS: Amlodipine 5 MG TAB PO SCH (08:32)
[2018-08-30] MEDS: Ascorbic Acid 500 mg Chewable Tablet PO SCH ×2 (08:32→20:45)
[2018-08-30] MEDS: Ondansetron ODT 4 MG TAB PO PRN ×2 (08:33→12:57)
[2018-08-30] MEDS: Acetaminophen 325 MG TAB PO PRN (20:45)
[2018-08-31] MEDS: Acetaminophen 325 MG TAB PO PRN ×2 (04:09→12:23)
[2018-08-31] MEDS: Amlodipine 5 MG TAB PO SCH (09:18)
[2018-08-31] MEDS: Zinc Sulfate 220 MG CAP PO SCH (09:18)
[2018-08-31] MEDS: Ondansetron ODT 4 MG TAB PO PRN (09:18)
[2018-08-31] MEDS: Polyethylene Glycol 3350 17 GM Packet PO SCH (09:19)
[2018-08-31] MEDS: Famotidine 20 MG TAB PO SCH (09:19)
[2018-08-31] MEDS: Ascorbic Acid 500 mg Chewable Tablet PO SCH (09:19)
[2018-08-31] MEDS: Enoxaparin Sodium 40 MG/0.4 ML SYRINGE SC SCH (09:19)
[2018-08-31 09:20] VITALS: BP 130/77
[2018-08-31 09:57] VITALS: TEMP 98.7
--- NOTE | 2018-08-31 11:41 | DIS ---
DATE OF ADMISSION: 08/18/2018 DATE OF DISCHARGE: 08/31/2018 FINAL DIAGNOSES: 1. Generalized weakness and gait abnormality. a. Secondary to recent fall with fracture of the left wrist on 08/14/2018, and that required open reduction and internal fixation and contusion to the left hip. b. Gait abnormality. c. Improved. Walking now with just the aid of a cane. 2. Fall, mechanical tripping that occurred on 08/14/2018 and resulting fracture of the left wrist and contusion of the left hip. 3. Closed comminuted displaced fracture of the left distal radius secondary to a all on 08/14/2018. a. Status post open reduction and internal fixation utilizing an Arthrex volar locking distal radius plate on 08/15/[address] Ishaan Dela Cruz. b. Comfortable with appropriate fitting volar splint on the left forearm as of 08/31/2018. 4. Contusion to the left hip secondary to the fall on 08/14/2018. a. Complicated by pain and reduced movement and gait abnormality. b. CT scan of the left hip on 08/14/2018 showed no evidence of left hip fracture. c. Comfortable at rest. Still having some pain. Transfers and ambulation are better. Range of motion of the left hip better as of 08/26/2018. 5. Multinodular goiter. a. Controlled as of 08/21. b. Stable. 6. History of transient ischemic attack. a. Manifested with left-sided facial weakness in 2008. b. No recurrence. 7. Constipation. a. Controlled as of 08/27/2018. 8. Hypertension. a. Controlled as of 08/27/2018. 9. Diarrhea. a. Probable viral etiology improving as of 08/31/2018. SUMMARY: The patient is a 78-year-old white female, who lives with her and is independent of all her ADLs and instrumental ADLs. She has a multinodular goiter that is benign. She had a fall while working at the [employer] on the afternoon of 08/14. She said she tripped and fell, landing on her left hip and left wrist. She did hit her left temporal area of her scalp, but there was no loss of consciousness. She was brought to the emergency room and was found to have a closed comminuted displaced fracture of the distal radius. There was a possibility of a left femoral neck fracture. She was transferred to the [facility] [place], and there was evaluated by orthopedic surgeon, Dr. Daniele Dela Cruz, and on 08/15, she underwent an open reduction and internal fixation of the left femoral radial three-part fracture using a volar plate and screws. She was placed in a volar splint. The left hip was evaluated with a CT scan of the hip and no fractures was seen. She was felt just had a bruising of that hip and it would take some time for this to heal. She had no problems postop. She was transferred on 2018 to [facility] for physical therapy due to weakness and gait abnormality secondary to her fall and fractured risk and bruising of the left hip. HOSPITAL COURSE: The patient did very well throughout her hospitalization. Her pain was managed with Tylenol and hydrocodone on an occasion. She had Physical Therapy work with her and she showed gradual improvement. Initially, she required assistance with transfers and was able to ambulate with a platform walker for the left arm and did very well. Gradually, she progressed to where she was ambulating 150 feet several times a day and eventually, was able to progress to use of a cane only. She did very well with her left arm with a volar splint. The volar splint fit appropriately. She was due to see Dr. Dela Cruz in followup on 08/31/2018. The left hip gradually improved. The pain became much less and very manageable with Tylenol alone. While in the hospital, she did develop some nausea and some diarrhea. There were some other patients in the hospital had similar symptoms. It was felt she had a viral gastroenteritis. She was given Zofran for the nausea and then the diarrhea gradually improved. By 08/31/2018, her condition had improved , such that has felt like she could be managed at home. At home, she will have a granddaughter that will be staying with her and assisting her. We will arrange for in-home Home Health to assist and arrange for PT and OT. DISPOSITION: DIET: Regular diet. ACTIVITIES: Ambulate with the use of a cane. Fall precautions. Continue to wear the volar splint. MEDICATIONS: 1. Tylenol 325 mg two every 4 hours as needed. 2. Amlodipine 5 mg daily. 3. Ascorbic acid 500 mg b.i.d. 4. Dulcolax suppository 10 mg one daily, if needed. 5. Vitamin D3 1000 units daily. 6. MiraLAX 17 g 8 ounces of water daily p.r.n. FOLLOWUP: The patient is to see her orthopedic surgeon, Dr. Dela Cruz on 2018. Arrangements will be made for Home Health to see the patient and arrange for in- home PT and OT. We will see the patient in followup in my office in 2 weeks. CODE STATUS: Full code. Job ID: [id number] MTDD
--- NOTE | 2018-08-31 11:44 | PRG ---
DATE OF SERVICE: 08/29/2018 SUBJECTIVE: The patient says she is doing better yesterday. She developed some nausea, but no vomiting, and she has had multiple watery bowel movements. This morning, she feels better. She is still having some diarrhea, but no abdominal pain and no vomiting. Still has a little mild nausea. Overall, she is doing better. Her left wrist is feeling better. There was a little pressure from the wrapping on the thumb. This was modified and she is much more comfortable afterwards. She said she is now walking some with just a cane and doing very well. Her hip feels better. OBJECTIVE: GENERAL: The patient is sitting up in a Vane chair. She is alert, appears comfortable, and in no distress. VITAL SIGNS: Her temperature is 97.8, pulse 91, respirations 14, O2 saturation 97% on room air, blood pressure 135/71. LUNGS: Clear. HEART: Regular rate. EXTREMITIES: Left wrist, there is a little pressure on the medial side of the thumb from her wrapping. This was modified and she said it felt better. The volar splint otherwise fits well. Lower extremities, no edema. ASSESSMENT: 1. Generalized weakness and gait abnormality. a. Secondary to recent fall with fracture of the left wrist on 08/14/2018, and that required open reduction and internal fixation and contusion to the left hip. b. Gait abnormality. c. Improved as of 08/29/2018. 2. Fall, mechanical tripping that occurred on 08/14/2018 and resulting fracture of the left wrist and contusion of the left hip. 3. Closed comminuted displaced fracture of the left distal radius secondary to a fall on 08/14/2018. a. Status post open reduction and internal fixation utilizing an Arthrex volar locking distal radius plate on 08/15/[address] Ishaan Dela Cruz. b. Comfortable with appropriate fitting volar splint on the left forearm as of 08/29/2018. 4. Contusion to the left hip secondary to the fall on 08/14/2018. a. Complicated by pain and reduced movement and gait abnormality. b. CT scan of the left hip on 08/14/2018 showed no evidence of left hip fracture. c. Comfortable at rest. Still having some pain. Transfers and ambulation are better. Range of motion of the left hip better as of 08/29/2018. Now ambulating some with just a cane. 5. Multinodular goiter. a. Controlled as of 08/21. b. Stable. 6. History of transient ischemic attack. a. Manifested with left-sided facial weakness in 2008. b. No recurrence. 7. Constipation. a. Controlled as of 08/27/2018. 8. Hypertension. a. Controlled as of 08/29/2018. 9. Diarrhea, probably from gastroenteritis that is improving as of 08/29/2018. PLAN: Continue present care. Encourage the patient to keep up her oral fluids to replace which she loses with the diarrhea. She is feeling better. She is doing better with her physical therapy. Still anticipate discharge home on 08/31. Job ID: [id number] [facility]
== END 2018-08-31 12:49 | disposition home or self-care (01) | DRG 561 ==
LOC: MADMS 16:38
PROVIDERS: ADMIT Family Medicine; ATTEND Family Medicine
DX: Z47.89 Encounter for other orthopedic aftercare (principal); I10 Essential (primary) hypertension; Z96.653 Presence of artificial knee joint, bilateral; R53.81 Other malaise; E04.2 Nontoxic multinodular goiter; K59.00 Constipation, unspecified; R19.7 Diarrhea, unspecified; Z86.73 Personal history of transient ischemic attack (TIA), and cerebral infarction without residual deficits; S52.502D Unspecified fracture of the lower end of left radius, subsequent encounter for closed fracture with routine healing; W18.30XD Fall on same level, unspecified, subsequent encounter; S70.02XD Contusion of left hip, subsequent encounter; Z85.820 Personal history of malignant melanoma of skin; Z90.710 Acquired absence of both cervix and uterus; Z79.899 Other long term (current) drug therapy; Z88.2 Allergy status to sulfonamides; Z88.8 Allergy status to other drugs, medicaments and biological substances
CPT/HCPCS: 36415; 80053; 85025; J1650; Q0162